=== PATIENT | male | born 1950 | race Caucasian/White ===

== ENCOUNTER 2016-04-26 17:50 | Inpatient (IN) | payer MEDICAID ==
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
[2016-04-26] MEDS ORDERED: HYDROmorphone 1 MG INJECTION IV ONE (18:32)
[2016-04-26 18:49] LABS: MPV 7.5 fL (7.4-10.4)
[2016-04-26 18:59] LABS: PARTIAL THROMB. TIME 27.3 SEC (22-35)
[2016-04-26 19:03] LABS: BLOOD UREA NITROGEN 11 MG/DL (9-20); CALC CORRECTED 8.5 MG/DL (8.4-10.2); CALCIUM 8.4 MG/DL (8.4-10.2); CALCULATED OSMOLALITY 264 MOs/Kg (270-290); CHLORIDE 101 mEq/L (98-107); CPK TOTAL WITH POSSIBLE MB 52 IU/L (55-170); GLUCOSE 118 MG/DL (70-99); SODIUM LEVEL 137 mEq/L (137-146); TOTAL PROTEIN 7.2 G/DL (6.3-8.2)
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
[2016-04-26 19:31] LABS: SEG NEUTROPHIL 28 % (45-76)
--- NOTE | 2016-04-26 19:49 | DIRPT ---
CLINICAL DATA: Fall over wheelchair today. Right hip injury. EXAM: CHEST 1 VIEW COMPARISON: None. FINDINGS: 1914 hours. The heart size and mediastinal contours are normal without evidence of mediastinal hematoma. There is mild aortic atherosclerosis. The lungs are hyperinflated with patchy airspace opacity in the right upper lobe. There is no pleural effusion or pneumothorax. No acute osseous findings. IMPRESSION: Ill-defined right upper lobe density could reflect an area of inflammation, scarring or pulmonary contusion. Followup PA and lateral chest X-ray is recommended in 3-4 weeks to ensure resolution and exclude underlying malignancy. Electronically Signed By: Deepak Delgado M.D. On: 04/26/2016 19:46
--- NOTE | 2016-04-26 19:52 | DIRPT ---
CLINICAL DATA: Pain following fall EXAM: BILATERAL HIP (WITH PELVIS) 3-4 VIEWS COMPARISON: None. FINDINGS: Frontal pelvis as well as frontal and lateral hips bilaterally-total five views- were obtained. There is a subcapital femoral neck fracture on the right with impaction at the fracture site. There is no other demonstrable acute fracture. No dislocation. There is evidence of old trauma in the midportion of each ischium. Joint spaces appear intact. No erosive change. IMPRESSION: Subcapital femoral neck fracture on the right with impaction at the fracture site. No dislocations. Evidence of prior fractures of each mid ischium, healed. Electronically Signed By: Deepak Valdez III, M.D. On: 04/26/2016 19:50
[2016-04-26 19:57] LABS: LEUKOCYTES/URINE NEG (NEGATIVE); NITRITE/URINE NEG (NEGATIVE); RBC/URINE TNTC (0-2); URINE OCCULT BLOOD 3+ (NEG/TRACE); WBC/URINE 0-2 (0-2)
[2016-04-26] MEDS ORDERED: DEXTROSE 25 GM/50 ML PFS IV PRN (20:18)
[2016-04-26] MEDS ORDERED: GLUCOSE (ORAL GEL) 15 GM TUBE PO PRN (20:18)
[2016-04-26] MEDS ORDERED: GLUCAGON 1 MG VIAL SQ PRN (20:18)
[2016-04-26] MEDS ORDERED: Albuterol/Ipratropium Neb 3 ML NEB NEB PRN (20:18)
[2016-04-26] MEDS ORDERED: ALPRAZOLAM 0.25 MG TAB PO PRN (20:25)
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
[2016-04-26] MEDS ORDERED: BISACODYL 5 MG TAB PO PRN (20:39)
[2016-04-26] MEDS ORDERED: SIMETHICONE 80 MG TAB PO PRN (20:39)
[2016-04-26] MEDS ORDERED: PROMETHAZINE 25 MG/ML VIAL IV PRN (20:39)
[2016-04-26] MEDS ORDERED: TEMAZEPAM 15 MG CAP PO PRN (20:39)
[2016-04-26] MEDS ORDERED: DOCUSATE-SENNA CONCENTRATE TAB PO PRN (20:39)
[2016-04-26] MEDS ORDERED: BISACODYL 10 MG SUPP PR PRN (20:39)
[2016-04-26] MEDS ORDERED: ONDANSETRON HCL 4 MG/2 ML VIAL IV PRN (20:39)
[2016-04-26] MEDS ORDERED: GUAIFENESIN 200 MG/10 ML UDC PO PRN (20:39)
[2016-04-26] MEDS ORDERED: IBUPROFEN 400 MG TAB PO PRN (20:39)
[2016-04-26] MEDS ORDERED: ENOXAPARIN 40 MG/0.4 ML PFS SQ SCH (21:00)
[2016-04-26] MEDS ORDERED: METHYLPREDNISOLONE 125 MG/2 ML VIAL IV ONE (21:00)
[2016-04-26] MEDS: NS 1,000 ML IV SCH (22:15)
[2016-04-26] MEDS: CEFTRIAXONE 1 GM in D5W 100 ML IV SCH (22:35)
[2016-04-26] MEDS: Levofloxacin 750 mg/150 ml D5W 750 MG/150 ML RTU IV SCH (22:35)
[2016-04-26] MEDS: NICOTINE 21 MG PATCH TOP SCH (22:39)
[2016-04-26] MEDS: DIVALPROEX SODIUM 125 MG CAP PO SCH (22:39)
[2016-04-26] MEDS: GUAIFENESIN 600 MG LA TAB PO SCH (22:39)
[2016-04-26] MEDS: PHENYTOIN SODIUM 100 MG CAP PO SCH (22:40)
[2016-04-26] MEDS: MORPHINE 2 MG/ML INJECTION IV PRN (23:02)
[2016-04-26] MEDS: ACETAMINOPHEN 325 MG/TAB TABLET PO SCH (23:03)
[2016-04-27 01:22] LABS: MPV 7.4 fL (7.4-10.4)
[2016-04-27 01:28] LABS: BLOOD UREA NITROGEN 10 MG/DL (9-20); CALCIUM 8.5 MG/DL (8.4-10.2); CALCULATED OSMOLALITY 264 MOs/Kg (270-290); CHLORIDE 98 mEq/L (98-107); GLUCOSE 155 MG/DL (70-99); SODIUM LEVEL 136 mEq/L (137-146)
[2016-04-27] MEDS: METHYLPREDNISOLONE 125 MG/2 ML VIAL IV SCH ×4 (01:45→20:42)
[2016-04-27] MEDS: OXYCODONE HCL 5 MG TABLET PO PRN ×2 (01:47→20:46)
[2016-04-27 01:57] LABS: SEG NEUTROPHIL 33 % (45-76)
[2016-04-27 01:59] LABS: TOTAL CELL COUNT 100
[2016-04-27] MEDS: REGULAR INSULIN 100 UNITS/ML - 3 ML VIAL SQ SCH ×4 (02:28→16:38)
[2016-04-27] MEDS: Albuterol/Ipratropium Neb 3 ML NEB NEB SCH ×4 (03:01→21:32)
[2016-04-27] MEDS ORDERED: CHLORHEXIDINE (HIBICLENS) 4 OZ BOTTLE TOP ONE (04:22)
[2016-04-27] MEDS: MORPHINE 2 MG/ML INJECTION IV PRN (04:36)
[2016-04-27] MEDS: ACETAMINOPHEN 325 MG/TAB TABLET PO SCH ×4 (04:38→20:46)
[2016-04-27] MEDS: DIVALPROEX SODIUM 125 MG CAP PO SCH ×3 (05:46→20:33)
[2016-04-27] MEDS: PANTOPRAZOLE 40 MG TAB PO SCH (05:47)
[2016-04-27 05:51] LABS: ABG Draw Site Right Radial; ALLEN'S TEST PASS; TCO2 27.9 MMOL/L (23-27)
[2016-04-27] MEDS ORDERED: CEFAZOLIN 1 GM VIAL IV ONE (07:00)
[2016-04-27] MEDS: PHENYTOIN SODIUM 100 MG CAP PO SCH ×2 (08:02→20:34)
[2016-04-27] MEDS: CYANOCOBALAMIN (Vitamin B-12) 500 MCG TABLET PO SCH (08:02)
[2016-04-27] MEDS: GUAIFENESIN 600 MG LA TAB PO SCH ×2 (08:02→20:34)
[2016-04-27] MEDS ORDERED: CYANOCOBALAMIN 250 MCG PO SCH (09:00)
[2016-04-27] MEDS ORDERED: GLYCOPYRROLATE 1 MG VIAL IM ONE (10:00)
[2016-04-27] MEDS ORDERED: DEXAMETHASONE 4 MG/ML VIAL IV ONE (10:00)
[2016-04-27] MEDS ORDERED: MIDAZOLAM 2 MG/2 ML VIAL IV ONE (10:00)
[2016-04-27] MEDS ORDERED: HYDROmorphone 2 MG/ML VIAL IM ONE (10:00)
[2016-04-27] MEDS ORDERED: ONDANSETRON HCL 4 MG/2 ML VIAL IV ONE (10:00)
[2016-04-27] MEDS ORDERED: PROPOFOL 200 MG/20 ML VIAL IV ONE (10:00)
[2016-04-27] MEDS: CALCIUM CARBONATE + VITAMIN D 500 MG TAB PO SCH ×2 (11:16→17:50)
[2016-04-27] MEDS: NS 1,000 ML IV SCH ×2 (11:18→21:38)
[2016-04-27] MEDS ORDERED: ONDANSETRON HCL 4 MG ODT TAB PO PRN (12:37)
[2016-04-27] MEDS ORDERED: LABETALOL 20 MG/4 ML SYRINGE IV PRN (12:37)
[2016-04-27] MEDS ORDERED: MEPERIDINE 25 MG/ML TUBEX IV PRN (12:37)
[2016-04-27] MEDS ORDERED: FENTANYL 100 MCG/2 ML VIAL IV PRN ×2 (12:37)
[2016-04-27] MEDS ORDERED: hydrALAZINE 20 MG/ML VIAL IV PRN (12:37)
[2016-04-27] MEDS ORDERED: PROMETHAZINE 25 MG/ML VIAL IV PRN ×2 (12:37)
[2016-04-27] MEDS ORDERED: ONDANSETRON HCL 4 MG/2 ML VIAL IV PRN (12:37)
[2016-04-27] MEDS ORDERED: HYDROmorphone 1 MG INJECTION IV PRN ×2 (12:37)
--- NOTE | 2016-04-27 12:38 | SC.ANESPOS ---
Post-Anesthesia Note LOC: [facility] Calling Post-Anesthesia Assessment: Awake, Returned to Baseline, Hemodynamically Stable , Pain Control Adequate Phase I & II Recovery Complete: Yes Apparent Anesthesia Complication: No : N - Vital Signs Blood Pressure: 146/79 Pulse: 80 Resp Rate: 20 O2 Sat: 96 Temp: 99 F
--- NOTE | 2016-04-27 12:44 | HIM.ANES ---
Anesthesia Evaluation & Plan - Focused Review of Systems Cardiac History: Yes: Hx Hypertension Respiratory: Yes: Hx Emphysema, Hx Chronic Obstructive Pulmonary Disease (COPD) , Hx Pneumonia Neurological/Musculoskeletal: Yes: HX Cerebrovascular Accident, Hx Seizures ( Last yesterday) Psychological: Yes Hx Anxiety, Yes Hx Depression Blood/Autoimmune: No: Hx AIDS, Hx Hepatitis (type) Smoking Status: Heavy tobacco smoker (5 or more cigarettes/day or daily pipe/ cigar) - Focused Physical Exam NPO since: midnight Mallampati: Class II Thyromental Distance: Greater than 3 Neck: Full Range of Motion Dental: Removable Dental Work Cardiovascular/Chest: Normal Respiratory: Decreased breath sounds, Crackles Any problems with anesthesia, including nausea and vomiting?: No Any relatives with a history of Malignant Hyperthermia?: No Does patient have a history of Malignant Hyperthermia?: No Beta Juan M given (if appropriate): N/A Other: Problem List Problem Status Onset Acute and chronic respiratory failure with hypoxia Acute Closed right hip fracture Acute Closed right hip fracture Acute Epilepsy Acute Pneumonia Acute Right hip pain Acute GERD (gastroesophageal reflux disease) Chronic Rheumatoid arthritis Chronic PT/PTT/INR/ PT 10.7 SEC (9.2-11.2) 04/26/16 18:30 INR 1.0 04/26/16 18:30 APTT 27.3 SEC (22-35) 04/26/16 18:30 CBC/BMP/Other 04/27/16 01:10 04/27/16 01:10 Allergies Allergy/AdvReac Type Severity Reaction Status Date / Time No Known Allergies Allergy Unverified 04/26/16 18:30 Home Medications Medication Instructions Recorded Last Taken Type Alprazolam [Xanax] 0.25 mg PO QHS PRN 04/26/16 04/25/16 History Cyanocobalamin (Vitamin B-12) 250 mcg PO DAILY 04/26/16 04/26/16 History [Vitamin B-12] Divalproex Sodium [Depakote 125 mg PO TID 04/26/16 04/26/16 History Sprinkle] Phenytoin Sodium Extended 200 mg PO BID 04/26/16 04/26/16 History [Dilantin] Height and Weight Patient's weight 133 lb 8 oz Weight (Calculated Kilograms) 60.555 Vital Signs Temperature 99 F 04/27/16 12:38 Pulse Rate 80 04/27/16 12:38 Respiratory Rate 20 04/27/16 12:38 Blood Pressure 146/79 04/27/16 12:38 Pulse Oxygen Saturation 96 04/27/16 12:38 - Anesthetic Plan Anesthesia Type: General ASA Class: 3 -: I have examined this patient and reviewed the medical record. The patient has been assessed prior to anesthesia. Risks and benefits of anesthesia and anesthetic technique options have been discussed and all questions answered. The patient accepts the risk and desires me to proceed with the planned anesthetic.
[2016-04-27] MEDS ORDERED: LIDOCAINE 1% 30 ML VIAL (PRESERVATIVE FREE) ONE (13:20)
[2016-04-27] MEDS ORDERED: BUPIVACAINE 0.5% 30 ML VIAL ONE (13:20)
[2016-04-27] MEDS: VANCOMYCIN 1,000 MG VIAL INSTILL ONE ×2 (14:30→16:37)
--- NOTE | 2016-04-27 14:45 | HIMOPRPT ---
DATE OF PROCEDURE: 04/27/16 PREOPERATIVE DIAGNOSIS: Displaced femoral neck fracture of right hip. POSTOPERATIVE DIAGNOSIS: Displaced femoral neck right hip. OPERATION: Right hip hemiarthroplasty. SURGEON: Shabbir Romeo MD FIRST ASSISTANT MANAGER: URSZULA Lima ANESTHESIA: General endotracheal anesthesia DRAINS: None. COMPLICATIONS: None. IMPLANTS: Synthetic Substitute Metal Oleg - Titanium Stem non-cemented size 8 - Head Stainless Steel bipolar 52 mm,-5 mm diameter DISPOSITION: Stable to recovery. ESTIMATED BLOOD LOSS: 100 mL. BRIEF HISTORY: The patient is a 65 years old M with a history of fall. Patient sustained a displaced right femoral neck fracture. Right hip hemiarthroplasty was recommended. Patient understood that the risks involved in surgery include but are not limited to infection, damage to the nerve, blood vessel, recurrent dislocation, need for further surgery, continued pain, implant failure, DVT, pulmonary embolism, stroke and even . Patient was also explained the requirement of adherence to postoperative protocol. BIJAL EVANS showed understanding and willingness to proceed. Patient volunteered an informed consent. PROCEDURE IN DETAIL: BIJAL EVANS was identified in the preop area. The surgical side was confirmed with the patient and marked on the skin. Patient was then returned back into the operating room. Patient was placed supine on the operating table. Spinal anesthesia was administered. Proper timeout was performed confirming the identity of the patient as well as the site of the surgery. 2 g of IV Ancef were given preoperatively within 30 min. of the surgical incision. All the bony prominences were adequately padded. The surgical area was sealed off with plastic drapes. The surgical area was scrubbed with alcohol and Betadine and finally prepped with ChloraPrep. [place] full body gowns were used. Direct anterior approach was used. This surgical incision lateral and distal to the anterior superior iliac spine was made extending distally 4 inches.Skin and the fascia was incised. Bovie was used for deeper dissection. Tensor fascia ross was identified . The fascia of the tensor fascia ross was incised. The muscle belly of TFL was retracted laterally. The fascia between the sartorius and TFL was incised. Branches of the circumflex femoral vessels were cauterized. Curved Cobra retractors were placed superior and inferior to the neck. An interval was then created between the anterior hip capsule and hip flexors. An anterior cobra retractor was placed above the pelvic brim. A Tshaped capsular incision was made in the anterior capsule with the base of the T laterally along the intertrochanteric line. Anterior capsulectomy was performed. The cyst. An inferior retractors were repositioned inside the capsule. A napkin ringed osteotomy was made in the femoral neck. The femoral head was retrieved and measured 52 mm . We then proceeded with the preparation of the proximal femur for the implantation of the femoral stem. Posterior superior capsules was resected for release of proximal femur. The operated leg was abducted assisted with the break in the table. External rotation of the extremity was utilized. Proximal femur was delivered laterally and proximally. Progressive reaming of the femoral canal was performed up to size 8 . We then trialed with a different size neck options. The hip was carried through full flexion, adduction and internal rotation without any dislocation. Bilateral lower extremity lengths as palpated from anterior superior iliac spine to the medial malleolus were comparable bilaterally. We found adequate stability with standard size neck, 52 mm bipolar head. The trial components were removed. The wound was copiously irrigated with normal saline. We implanted a size 8 noncemented stem, with 52,-5 mm bipolar head. Hip was again carried through range of motion and stability was satisfactory in flexion, adduction and internal and external rotation. The hip joint was irrigated with copious amount of sterile saline solution. Also prior to closure of the capsule was injected with Exparel, which was also injected into the surrounding soft tissues. The fascia of the tensor fascia ross was closed with 2-0 Vicryl. The subcutaneous tissue was reapproximated with Vicryl and skin was closed with laith. The patient was extubated and taken to the recovery room in stable condition. BIJAL tolerated the procedure well without immediate complications. DISPOSITION: Patient would be admitted to the orthopedic service. Patient will be weightbearing as tolerated on bilateral lower extremities. Patient will be started on aspirin 325 mg twice daily for DVT prophylaxis. Patient will have mechanical prophylaxis with intermittent compression devices while in bed.
--- NOTE | 2016-04-27 15:52 | GENMEDPROG ---
Chief Complaint: Complains of moderate pain. Minimal shortness of breath. Some cough and congestion. Notes Reviewed: Yes Events from last night noted and discussed with Clinical Staff Current Medication List: Reviewed Currently: Reports: Cough, SOB. Denies: Wheezing, TRIANA, Nausea and Vomiting, Abdominal Pain, Chest Pain DVT Prophylaxis: Yes - Physical Examination Vital Signs and I&O: Last Vital Signs Temp 99.5 F 04/27/16 15:05 Pulse 84 04/27/16 15:05 Resp 14 04/27/16 15:05 BP 129/78 04/27/16 15:05 Pulse Ox 97 04/27/16 15:05 Oxygen Pulse Oxygen Saturation 97 O2 Device Simple Mask Oxygen Flow Rate 8 Fraction of Inspired Oxygen ( FIO2) Intake & Output 04/24/16 04/25/16 04/26/16 04/27/16 23:59 23:59 23:59 23:59 Intake Total 0 507 Output Total 225 1000 Balance -225 -493 Patient's weight 60.81 kg 60.555 kg General: Alert, Oriented x3, Cooperative. negative: Well appearing ( Chronically ill-appearing) HEENT: Normal, PERRLA, EOMI, Anicteric Sclera Neck: Non-tender, Full range of motion, Normal Trachea alignment, Normal inspection. negative: JVD Lymphatics: Normal. negative: Adenopathy Respiratory: Diminished, Rhonchi Cardiovascular: Regular rate and rhythm, No Gallops,Rubs/Murmurs GI: Normal bowel sounds, Soft, Non tender, No hepatospenomegaly Extremities/Musculoskeletal: Normal pulses. negative: Tenderness, Swelling, Edema Skin: Warm,Dry and Intact, No rashes, No breakdown, No significant lesion Neurological: Strength at 5/5 X4 ext, Normal tone, Cranial nerves 3-12 NL Psych/Mental Status: Appropriate, Normal Affect, Cooperative Lab/DI/Studies Reviewed: Laboratory Results - last 24 hr 04/26/16 04/26/16 04/26/16 18:30 18:30 18:30 WBC 1.8 L RBC 4.76 Hgb 13.5 L Hct 40.1 L MCV 84 MCH 28.3 MCHC 33.5 RDW 14.0 Plt Count 152 MPV 7.5 Neut % (Auto) Cancelled Lymph % (Auto) Cancelled [place] % (Auto) Cancelled Eos % (Auto) Cancelled Baso % (Auto) Cancelled Absolute Neuts (auto) Cancelled Absolute Lymphs (auto) Cancelled Seg Neuts % (Manual) 28 L Band Neutrophils % 0 Lymphocytes % (Manual) 54 H Monocytes % (Manual) 18 H Absolute Neutrophils 0.50 L Absolute Lymphocytes 0.97 Platelet Estimate Norm RBC Morphology Norm PT INR APTT Puncture Site pH pCO2 pO2 HCO3 Total CO2 Base Excess FiO2 % Specimen Drawn By Sodium 137 Potassium 4.0 Chloride 101 Carbon Dioxide 26 Anion Gap 14 BUN 11 Creatinine 0.50 L Estimated GFR (MDRD) > 60 Glucose 118 H POC Capillary Glucose Hemoglobin A1c Calculated Osmolality 264 L Calcium 8.4 Corrected Calcium 8.5 Total Bilirubin 0.7 AST 22 ALT 27 Alkaline Phosphatase 111 Creatine Kinase 52 L Troponin I < 0.01 Total Protein 7.2 Albumin 3.9 TSH Urine Color Urine Clarity Urine pH Ur Specific [place] Urine Protein Urine Glucose (UA) Urine Ketones Urine Occult Blood Urine Nitrite Urine Bilirubin Urine Urobilinogen Ur Leukocyte Esterase Urine RBC Urine WBC Ur Epithelial Cells Urine Mucus Blood Type O POSITIVE Antibody Screen Negative 04/26/16 04/26/16 04/26/16 18:30 19:38 21:10 WBC RBC Hgb Hct MCV MCH MCHC RDW Plt Count MPV Neut % (Auto) Lymph % (Auto) [place] % (Auto) Eos % (Auto) Baso % (Auto) Absolute Neuts (auto) Absolute Lymphs (auto) Seg Neuts % (Manual) Band Neutrophils % Lymphocytes % (Manual) Monocytes % (Manual) Absolute Neutrophils Absolute Lymphocytes Platelet Estimate RBC Morphology PT 10.7 INR 1.0 APTT 27.3 Puncture Site pH pCO2 pO2 HCO3 Total CO2 Base Excess FiO2 % Specimen Drawn By Sodium Potassium Chloride Carbon Dioxide Anion Gap BUN Creatinine Estimated GFR (MDRD) Glucose POC Capillary Glucose Hemoglobin A1c Calculated Osmolality Calcium Corrected Calcium Total Bilirubin AST ALT Alkaline Phosphatase Creatine Kinase Troponin I < 0.01 Total Protein Albumin TSH Urine Color Yellow Urine Clarity Clear Urine pH 6.0 Ur Specific [place] 1.015 Urine Protein Neg Urine Glucose (UA) Neg Urine Ketones 1+ H Urine Occult Blood 3+ H Urine Nitrite Neg Urine Bilirubin Neg Urine Urobilinogen <2.0 Ur Leukocyte Esterase Neg Urine RBC Tntc H Urine WBC 0-2 Ur Epithelial Cells 1+ Urine Mucus Occ Blood Type Antibody Screen 04/26/16 04/26/16 04/27/16 21:35 21:35 01:10 WBC RBC Hgb Hct MCV MCH MCHC RDW Plt Count MPV Neut % (Auto) Lymph % (Auto) [place] % (Auto) Eos % (Auto) Baso % (Auto) Absolute Neuts (auto) Absolute Lymphs (auto) Seg Neuts % (Manual) Band Neutrophils % Lymphocytes % (Manual) Monocytes % (Manual) Absolute Neutrophils Absolute Lymphocytes Platelet Estimate RBC Morphology PT INR APTT Puncture Site pH pCO2 pO2 HCO3 Total CO2 Base Excess FiO2 % Specimen Drawn By Sodium Potassium Chloride Carbon Dioxide Anion Gap BUN Creatinine Estimated GFR (MDRD) Glucose POC Capillary Glucose Hemoglobin A1c 5.4 Calculated Osmolality Calcium Corrected Calcium Total Bilirubin AST ALT Alkaline Phosphatase Creatine Kinase Troponin I < 0.01 Total Protein Albumin TSH 3.07 Urine Color Urine Clarity Urine pH Ur Specific [place] Urine Protein Urine Glucose (UA) Urine Ketones Urine Occult Blood Urine Nitrite Urine Bilirubin Urine Urobilinogen Ur Leukocyte Esterase Urine RBC Urine WBC Ur Epithelial Cells Urine Mucus Blood Type Antibody Screen 04/27/16 04/27/16 04/27/16 01:10 01:10 02:09 WBC 1.8 L RBC 4.92 Hgb 14.1 Hct 41.4 L MCV 84 MCH 28.6 MCHC 34.0 RDW 13.9 Plt Count 145 MPV 7.4 Neut % (Auto) Cancelled Lymph % (Auto) Cancelled [place] % (Auto) Cancelled Eos % (Auto) Cancelled Baso % (Auto) Cancelled Absolute Neuts (auto) Cancelled Absolute Lymphs (auto) Cancelled Seg Neuts % (Manual) 33 L Band Neutrophils % 3 Lymphocytes % (Manual) 46 H Monocytes % (Manual) 18 H Absolute Neutrophils 0.65 L Absolute Lymphocytes 0.83 Platelet Estimate Plt clumps present RBC Morphology Norm PT INR APTT Puncture Site pH pCO2 pO2 HCO3 Total CO2 Base Excess FiO2 % Specimen Drawn By Sodium 136 L Potassium 4.3 Chloride 98 Carbon Dioxide 28 Anion Gap 14 BUN 10 Creatinine 0.60 L Estimated GFR (MDRD) > 60 Glucose 155 H POC Capillary Glucose 135 H Hemoglobin A1c Calculated Osmolality 264 L Calcium 8.5 Corrected Calcium Total Bilirubin AST ALT Alkaline Phosphatase Creatine Kinase Troponin I Total Protein Albumin TSH Urine Color Urine Clarity Urine pH Ur Specific [place] Urine Protein Urine Glucose (UA) Urine Ketones Urine Occult Blood Urine Nitrite Urine Bilirubin Urine Urobilinogen Ur Leukocyte Esterase Urine RBC Urine WBC Ur Epithelial Cells Urine Mucus Blood Type Antibody Screen 04/27/16 04/27/16 04/27/16 05:05 05:36 10:37 WBC RBC Hgb Hct MCV MCH MCHC RDW Plt Count MPV Neut % (Auto) Lymph % (Auto) [place] % (Auto) Eos % (Auto) Baso % (Auto) Absolute Neuts (auto) Absolute Lymphs (auto) Seg Neuts % (Manual) Band Neutrophils % Lymphocytes % (Manual) Monocytes % (Manual) Absolute Neutrophils Absolute Lymphocytes Platelet Estimate RBC Morphology PT INR APTT Puncture Site Right radial pH 7.340 L pCO2 49.0 H pO2 59.0 L HCO3 26.4 H Total CO2 27.9 H Base Excess 0.0 FiO2 % 2l nc Specimen Drawn By Whitr Sodium Potassium Chloride Carbon Dioxide Anion Gap BUN Creatinine Estimated GFR (MDRD) Glucose POC Capillary Glucose 130 H 117 H Hemoglobin A1c Calculated Osmolality Calcium Corrected Calcium Total Bilirubin AST ALT Alkaline Phosphatase Creatine Kinase Troponin I Total Protein Albumin TSH Urine Color Urine Clarity Urine pH Ur Specific [place] Urine Protein Urine Glucose (UA) Urine Ketones Urine Occult Blood Urine Nitrite Urine Bilirubin Urine Urobilinogen Ur Leukocyte Esterase Urine RBC Urine WBC Ur Epithelial Cells Urine Mucus Blood Type Antibody Screen - Assessment (1) Acute and chronic respiratory failure with hypoxia Acute J96.21 - ACUTE AND CHRONIC RESPIRATORY FAILURE WITH HYPOXIA Comment/ Plan: Continue oxygen support. Encourage incentive spirometry. Continue IV antibiotics (2) Closed right hip fracture Acute S72.001A - FRACTURE OF UNSP PART OF NECK OF RIGHT FEMUR, INIT Qualifiers: Encounter type: initial encounter Qualified Code(s): S72.001A - Fracture of unspecified part of neck of right femur, initial encounter for closed fracture Comment/Plan: Status post right total hip replacement. Per Orthopedics. (3) Pneumonia Acute J18.9 - PNEUMONIA, UNSPECIFIED ORGANISM Qualifiers: Pneumonia type: due to unspecified organism Laterality: right Lung location: upper lobe of lung Qualified Code(s): J18.1 - Lobar pneumonia, unspecified organism Comment/Plan: Patient will receive antibiotics in the form of Rocephin and Levaquin. (4) Epilepsy Acute G40.909 - EPILEPSY, UNSP, NOT INTRACTABLE, WITHOUT STATUS EPILEPTICUS Qualifiers: Epilepsy type: unspecified Intractability: not intractable Status epilepticus: without status epilepticus Qualified Code(s): G40.909 - Epilepsy , unspecified, not intractable, without status epilepticus Comment/Plan: Stable on home meds.. (5) Right hip pain Acute M25.551 - PAIN IN RIGHT HIP Comment/Plan: Adjust meds to keep pain under control. (6) GERD (gastroesophageal reflux disease) Chronic K21.9 - GASTRO-ESOPHAGEAL REFLUX DISEASE WITHOUT ESOPHAGITIS Qualifiers: Esophagitis presence: without esophagitis Qualified Code(s): K21.9 - Gastro -esophageal reflux disease without esophagitis Comment/Plan: Continue PPI (7) Rheumatoid arthritis Chronic M06.9 - RHEUMATOID ARTHRITIS, UNSPECIFIED Qualifiers: Rheumatoid arthritis location: multiple sites Rheumatoid factor presence: unspecified presence Qualified Code(s): M06.9 - Rheumatoid arthritis, unspecified Comment/Plan: Continue narcotic analgesics and IV steroids. Case Care Discussed with: Patient, Nursing Staff, Physical Therapy, Resource Management, Respiratory Therapy
--- NOTE | 2016-04-27 15:54 | DIRPT ---
CLINICAL DATA: ORIF of right subcapital hip fracture. EXAM: RIGHT HIP (WITH PELVIS) 1 VIEW PORTABLE COMPARISON: None. FINDINGS: Frontal projection shows normal alignment of a bipolar hemiarthroplasty. No fracture or abnormal lucency identified. IMPRESSION: Normal alignment status post right hip arthroplasty. Electronically Signed By: Sloan Wilson M.D. On: 04/27/2016 15:51
[2016-04-27 15:58] VITALS: BMI 18.1
[2016-04-27] MEDS: Cefazolin 1gm/50 ml D5W 1 GM/50 ML RTU IV SCH (18:01)
[2016-04-27] MEDS: CEFTRIAXONE 1 GM in D5W 100 ML IV SCH (20:35)
[2016-04-27] MEDS: NICOTINE 21 MG PATCH TOP SCH (20:35)
[2016-04-27] MEDS: Levofloxacin 750 mg/150 ml D5W 750 MG/150 ML RTU IV SCH (21:42)
[2016-04-28] MEDS: REGULAR INSULIN 100 UNITS/ML - 3 ML VIAL SQ SCH ×4 (00:28→16:52)
[2016-04-28] MEDS: Albuterol/Ipratropium Neb 3 ML NEB NEB SCH ×4 (00:54→19:23)
[2016-04-28] MEDS: NS 1,000 ML IV SCH ×4 (01:52→21:02)
[2016-04-28] MEDS: Cefazolin 1gm/50 ml D5W 1 GM/50 ML RTU IV SCH ×2 (01:55→10:11)
[2016-04-28] MEDS: METHYLPREDNISOLONE 125 MG/2 ML VIAL IV SCH ×4 (03:28→21:02)
[2016-04-28] MEDS: ACETAMINOPHEN 325 MG/TAB TABLET PO SCH ×4 (03:29→21:07)
[2016-04-28] MEDS: ENOXAPARIN 40 MG/0.4 ML PFS SQ SCH ×2 (03:29→17:13)
[2016-04-28] MEDS: DIVALPROEX SODIUM 125 MG CAP PO SCH ×3 (05:15→20:59)
[2016-04-28] MEDS: PANTOPRAZOLE 40 MG TAB PO SCH (05:16)
--- NOTE | 2016-04-28 06:59 | PCM.ORTHBL ---
- Subjective Post Op Day: 1 Daily Assessment - Patient: Reports: No new complaints, Feels better, Pain is less, Tolerating Regular Diet, Afebrile, Other (Denies chest pain). Denies: Ambulating with Physical Therapist (to begin today), Difficulty Swallowing, Shortness of breath, Nausea, Vomiting - Objective / Physical Exam Vital Signs: Temperature: 99 F (04/28/16 03:37) HR: 80 (04/28/16 03:37)RR: 20 (04/28/16 03:37 ) BP: 146/79 (04/28/16 03:37)Pulse Ox: 96 (04/28/16 03:37) General: Alert, Cooperative, No acute distress, Well appearing, Other (Patient mildly confused this morning) Musculoskeletal / Extremities: 2 plus Dorsalis Pedis Pulse, Dressing Clean/Dry/ Intact. negative: Tenderness (no calf tenderness) Neurological: Positive Sensation First Dorsal Web Space, Sensation to light touch intact, Extensor Hallicus Longus Intact, Flexor Hallicus Longus Intact, Dorsiflexion Intact, Plantarflexion Intact - Assessment and Plan (1) Closed right hip fracture Acute S72.001A - FRACTURE OF UNSP PART OF NECK OF RIGHT FEMUR, INIT Present on Admission: Yes initial encounter S72.001A - Fracture of unspecified part of neck of right femur, initial encounter for closed fracture Plan: POD#1 s/p right hip hemiarthroplasty PT/OT/WBAT TEDS/SCDS/Lovenox SQ QD for 14 days post-op for DVT prophylaxis continue pain management D/c planning
[2016-04-28 07:45] LABS: MPV 7.4 fL (7.4-10.4)
--- NOTE | 2016-04-28 08:11 | DIRPT ---
CLINICAL DATA: Follow-up of suspected pneumonia EXAM: PORTABLE CHEST 1 VIEW COMPARISON: Portable chest x-ray of April 26, 2016 FINDINGS: The lungs remain mildly hyperinflated. Hazy increased density in the right mid lung is present but stable. There is no pneumothorax or pleural effusion. The heart and pulmonary vascularity are normal. IMPRESSION: Hazy increased density persists in the right mid lung. If the patient can undergo the procedure, a PA and lateral chest x-ray would be useful. Alternatively, given the lack of any studies earlier than April 26, 2016, chest CT scanning may be the most useful next imaging step to exclude lung parenchymal abnormalities. Electronically Signed By: Remy Sandoval M.D. On: 04/28/2016 08:09
[2016-04-28 08:25] LABS: BLOOD UREA NITROGEN 13 MG/DL (9-20); CALCIUM 7.7 MG/DL (8.4-10.2); CALCULATED OSMOLALITY 256 MOs/Kg (270-290); CHLORIDE 99 mEq/L (98-107); GLUCOSE 119 MG/DL (70-99); SODIUM LEVEL 132 mEq/L (137-146)
[2016-04-28] MEDS: PHENYTOIN SODIUM 100 MG CAP PO SCH ×2 (08:41→21:00)
[2016-04-28] MEDS: GUAIFENESIN 600 MG LA TAB PO SCH ×2 (08:41→21:00)
[2016-04-28 08:48] LABS: SEG NEUTROPHIL 38 % (45-76)
[2016-04-28] MEDS: CYANOCOBALAMIN (Vitamin B-12) 500 MCG TABLET PO SCH (08:53)
[2016-04-28] MEDS: CALCIUM CARBONATE + VITAMIN D 500 MG TAB PO SCH ×2 (11:20→17:12)
--- NOTE | 2016-04-28 15:05 | GENMEDPROG ---
Chief Complaint: Sitting up in chair doing well. No complaints. Denies chest pain. Does have moderate hip pain Notes Reviewed: Yes Events from last night noted and discussed with Clinical Staff Current Medication List: Reviewed Currently: Reports: Cough, SOB. Denies: Wheezing, TRIANA, Nausea and Vomiting, Abdominal Pain, Chest Pain DVT Prophylaxis: Yes - Physical Examination Vital Signs and I&O: Last Vital Signs Temp 98.4 F 04/28/16 14:00 Pulse 94 04/28/16 14:00 Resp 20 04/28/16 14:00 BP 123/68 04/28/16 14:00 Pulse Ox 93 04/28/16 14:00 Oxygen Pulse Oxygen Saturation [ 88 Seated] Pulse Oxygen Saturation 93 O2 Device Nasal Cannula Oxygen Flow Rate 2 Fraction of Inspired Oxygen ( FIO2) Intake & Output 04/25/16 04/26/16 04/27/16 04/28/16 23:59 23:59 23:59 23:59 Intake Total 0 1434 2177 Output Total 225 1500 850 Balance -225 -66 1327 Patient's weight 60.81 kg 60.555 kg 62.171 kg General: Alert, Cooperative, No acute distress, Well appearing, Other (Patient mildly confused this morning) HEENT: Normal, PERRLA, EOMI, Anicteric Sclera Neck: Non-tender, Full range of motion, Normal Trachea alignment, Normal inspection. negative: JVD Lymphatics: Normal. negative: Adenopathy Respiratory: Normal - CTA Cardiovascular: Regular rate and rhythm, No Gallops,Rubs/Murmurs GI: Normal bowel sounds, Soft, Non tender, No hepatospenomegaly Extremities/Musculoskeletal: Normal pulses. negative: Tenderness, Swelling, Edema Skin: No rashes, No breakdown, No significant lesion Neurological: Normal speech, Strength at 5/5 X4 ext, Normal tone Psych/Mental Status: Appropriate, Normal Affect, Cooperative Lab/DI/Studies Reviewed: Laboratory Results - last 24 hr 04/26/16 04/27/16 04/28/16 18:30 16:32 00:14 WBC RBC Hgb Hct MCV MCH MCHC RDW Plt Count MPV Neut % (Auto) Lymph % (Auto) [place] % (Auto) Eos % (Auto) Baso % (Auto) Absolute Neuts (auto) Absolute Lymphs (auto) Seg Neuts % (Manual) Band Neutrophils % Lymphocytes % (Manual) Monocytes % (Manual) Absolute Neutrophils Absolute Lymphocytes Toxic Granulation Platelet Estimate RBC Morphology Sodium Potassium Chloride Carbon Dioxide Anion Gap BUN Creatinine Estimated GFR (MDRD) Glucose POC Capillary Glucose 127 H 178 H Calculated Osmolality Calcium Vitamin D 25-Hydroxy 45.8 04/28/16 04/28/16 04/28/16 05:06 07:11 07:11 WBC 2.0 L RBC 3.76 L Hgb 10.9 L D Hct 31.2 L MCV 83 MCH 29.0 MCHC 34.9 RDW 13.6 Plt Count 116 L MPV 7.4 Neut % (Auto) Cancelled Lymph % (Auto) Cancelled [place] % (Auto) Cancelled Eos % (Auto) Cancelled Baso % (Auto) Cancelled Absolute Neuts (auto) Cancelled Absolute Lymphs (auto) Cancelled Seg Neuts % (Manual) 38 L Band Neutrophils % 17 H Lymphocytes % (Manual) 33 Monocytes % (Manual) 12 H Absolute Neutrophils 1.10 L Absolute Lymphocytes 0.66 Toxic Granulation 1+ Platelet Estimate Dec RBC Morphology Reviewed this admiss Sodium 132 L Potassium 3.9 Chloride 99 Carbon Dioxide 26 Anion Gap 11 BUN 13 Creatinine 0.60 L Estimated GFR (MDRD) > 60 Glucose 119 H POC Capillary Glucose 100 H Calculated Osmolality 256 L Calcium 7.7 L Vitamin D 25-Hydroxy 04/28/16 11:16 WBC RBC Hgb Hct MCV MCH MCHC RDW Plt Count MPV Neut % (Auto) Lymph % (Auto) [place] % (Auto) Eos % (Auto) Baso % (Auto) Absolute Neuts (auto) Absolute Lymphs (auto) Seg Neuts % (Manual) Band Neutrophils % Lymphocytes % (Manual) Monocytes % (Manual) Absolute Neutrophils Absolute Lymphocytes Toxic Granulation Platelet Estimate RBC Morphology Sodium Potassium Chloride Carbon Dioxide Anion Gap BUN Creatinine Estimated GFR (MDRD) Glucose POC Capillary Glucose 177 H Calculated Osmolality Calcium Vitamin D 25-Hydroxy - Assessment (1) Acute and chronic respiratory failure with hypoxia Acute J96.21 - ACUTE AND CHRONIC RESPIRATORY FAILURE WITH HYPOXIA Comment/ Plan: Doing well. Denies significant respiratory difficulty at this time. Wean oxygen and increase activity. Continue current care (2) Closed right hip fracture Acute S72.001A - FRACTURE OF UNSP PART OF NECK OF RIGHT FEMUR, INIT Qualifiers: Encounter type: initial encounter Qualified Code(s): S72.001A - Fracture of unspecified part of neck of right femur, initial encounter for closed fracture Comment/Plan: Status post right total hip replacement. Per Orthopedics. (3) Pneumonia Acute J18.9 - PNEUMONIA, UNSPECIFIED ORGANISM Qualifiers: Pneumonia type: due to unspecified organism Laterality: right Lung location: upper lobe of lung Qualified Code(s): J18.1 - Lobar pneumonia, unspecified organism Comment/Plan: Right midlung. Continue antibiotics pulmonary toilet. Likely needs follow-up chest x-ray in a couple of days. (4) Epilepsy Acute G40.909 - EPILEPSY, UNSP, NOT INTRACTABLE, WITHOUT STATUS EPILEPTICUS Qualifiers: Epilepsy type: unspecified Intractability: not intractable Status epilepticus: without status epilepticus Qualified Code(s): G40.909 - Epilepsy , unspecified, not intractable, without status epilepticus Comment/Plan: Stable on home meds.. (5) Right hip pain Acute M25.551 - PAIN IN RIGHT HIP Comment/Plan: Adjust meds to keep pain under control. (6) GERD (gastroesophageal reflux disease) Chronic K21.9 - GASTRO-ESOPHAGEAL REFLUX DISEASE WITHOUT ESOPHAGITIS Qualifiers: Esophagitis presence: without esophagitis Qualified Code(s): K21.9 - Gastro -esophageal reflux disease without esophagitis Comment/Plan: Continue PPI (7) Rheumatoid arthritis Chronic M06.9 - RHEUMATOID ARTHRITIS, UNSPECIFIED Qualifiers: Rheumatoid arthritis location: multiple sites Rheumatoid factor presence: unspecified presence Qualified Code(s): M06.9 - Rheumatoid arthritis, unspecified Comment/Plan: Continue narcotic analgesics and IV steroids. Case Care Discussed with: Patient, Nursing Staff, Physical Therapy, Resource Management, Respiratory Therapy, Hemodialysis Charge Nurse
[2016-04-28] MEDS: NICOTINE 21 MG PATCH TOP SCH (21:01)
[2016-04-28] MEDS: CEFTRIAXONE 1 GM in D5W 100 ML IV SCH (21:07)
[2016-04-28] MEDS: Levofloxacin 750 mg/150 ml D5W 750 MG/150 ML RTU IV SCH (22:00)
[2016-04-29] MEDS: REGULAR INSULIN 100 UNITS/ML - 3 ML VIAL SQ SCH ×4 (00:36→16:57)
[2016-04-29] MEDS: Albuterol/Ipratropium Neb 3 ML NEB NEB SCH ×3 (01:20→14:15)
[2016-04-29] MEDS: ACETAMINOPHEN 325 MG/TAB TABLET PO SCH ×3 (02:35→14:51)
[2016-04-29] MEDS: METHYLPREDNISOLONE 125 MG/2 ML VIAL IV SCH ×3 (02:36→14:50)
[2016-04-29] MEDS: NS 1,000 ML IV SCH ×2 (02:37→11:03)
[2016-04-29] MEDS: DIVALPROEX SODIUM 125 MG CAP PO SCH ×2 (05:23→12:28)
[2016-04-29] MEDS: PANTOPRAZOLE 40 MG TAB PO SCH (05:24)
[2016-04-29 05:52] LABS: AUTOMATED BASOPHIL 0.1 % (0-2); AUTOMATED EOSINOPHIL 0.1 % (0-5); AUTOMATED LYMPH 18.9 % (17-44); AUTOMATED MONOCYTE 16.7 % (3-10); AUTOMATED NEUTROPHIL 64.2 % (45-76); MPV 7.9 fL (7.4-10.4)
[2016-04-29 06:19] LABS: BLOOD UREA NITROGEN 12 MG/DL (9-20); CALCIUM 8.4 MG/DL (8.4-10.2); CALCULATED OSMOLALITY 256 MOs/Kg (270-290); CHLORIDE 99 mEq/L (98-107); GLUCOSE 121 MG/DL (70-99); SODIUM LEVEL 132 mEq/L (137-146)
--- NOTE | 2016-04-29 06:54 | PCM.ORTHBL ---
- Subjective Post Op Day: 2 Daily Assessment - Patient: Reports: No new complaints, Awake Alert Oriented x4 , Pain is less, Tolerating Regular Diet, Afebrile, Ambulating with Physical Therapist, Other (Denies chest pain). Denies: Shortness of breath, Nausea, Vomiting - Objective / Physical Exam Vital Signs: Temperature: 98.2 F (04/29/16 05:43) HR: 97 (04/29/16 05:43)RR: 20 (04/29/16 05: 43) BP: 134/72 (04/29/16 05:43)Pulse Ox: 93 (04/29/16 05:43) General: Alert (confusion from yesterday improved), Oriented x3, Cooperative, No acute distress, Well appearing Musculoskeletal / Extremities: 2 plus Dorsalis Pedis Pulse, Dressing Clean/Dry/ Intact. negative: Tenderness (no calf tenderness) Neurological: Positive Sensation First Dorsal Web Space, Sensation to light touch intact, Extensor Hallicus Longus Intact, Flexor Hallicus Longus Intact, Dorsiflexion Intact, Plantarflexion Intact Laboratory/Diagnostics Reviewed: 04/29/16 05:10 04/29/16 05:10 - Assessment and Plan (1) Closed right hip fracture Acute S72.001A - FRACTURE OF UNSP PART OF NECK OF RIGHT FEMUR, INIT Present on Admission: Yes initial encounter S72.001A - Fracture of unspecified part of neck of right femur, initial encounter for closed fracture Plan: s/p right hip hemiarthroplasty PT/OT/WBAT TEDS/SCDS/Lovenox SQ QD for 14 days post-op Continue pain management D/c planning, plan to return to SNF
--- NOTE | 2016-04-29 07:12 | PCM.DCS92 ---
- Final/Secondary Discharge Diagnosis (1) Closed right hip fracture Acute S72.001A - FRACTURE OF UNSP PART OF NECK OF RIGHT FEMUR, INIT Present on Admission: Yes initial encounter S72.001A - Fracture of unspecified part of neck of right femur, initial encounter for closed fracture Discharge Disposition: Snf Facility Discharge Condition: Improved Cognitive Discharge Status: Unimpaired Fuctional Discharge Status: Walker Assistance, Recent lower extremety joint replacement, Post-op Weakness Physician Follow up/Referrals: Sagar Garcia MD [Primary Care Provider] - One Week Shabbir Romeo MD [Staff Physician] - Two Weeks New Prescriptions: Albuterol/Ipratropium Neb [Duoneb] 3 ml NEB RTQ6 #120 nebu Aspirin (Enteric Coated) [Halfprin] 81 mg PO DAILYWM #30 tablet Cefdinir [Omnicef] 300 mg PO BID #10 cap Docusate-Senna Concentrate [Senokot S or Christine Colace] 1 each PO QHS #30 tab Enoxaparin Sodium [Lovenox] 40 mg SQ DAILY #12 each Levofloxacin [Levaquin] 750 mg PO DAILY #5 tab Oxycodone Immediate Release [Oxycodone Immediate Release (OxyIR)] 5 mg PO Q4H PRN #40 tab PRN Reason: Pain Prednisone [Sterapred DS 10 mg/12 day pack] 48 tab PO DIR #1 pack Probiotic Blend [Vicky Q] 1 each PO BID #30 tab Diet at Discharge: As Tolerated, Diabetic Activity: As Tolerated, No Heavy Lifting, No Driving Call Office For: Worsening Symptoms, Wound is Draining Pus, Fever over 101 F, Fever over 100.5, Wound is Painful, Wound is Red, Weight Gain (see below), Pain Uncontrolled By Meds, Other (See Details) Discontinue use of:: Alcohol, All Illegal Substances, All Types of Tobacco - DC Summary Notes Hospital Course Note:: Discharge summary on patient named BIJAL EVANS admitted to [facility] on 04/26/16 by Link Suarez MD. Date of discharge is [04/29/16]. Afebrile. Hospital course and surgery uneventful. Progressing with PT. WBAT. Continue pain management. Lovenox for 14 days post-op for DVT prophylaxis. Aquacel dressing to be removed on POD#7, then daily dressing changes as needed. Discharge to SNF. To follow-up in office in 2 weeks or earlier as needed. Wound Care Surgical Site: Yes Site Description (if applicable): right hip May Shower Starting:: upon discharge Dressing/Site Care (if applicable): Aquacel dressing to be removed on POD#7, then daily dry dressing changes as needed. Medical Equipment (Order must still be written on paper): Walker Remove Transdermal Scopalamine patch if present: YES Medication Instructions: Take Stool Softener Continue Ice Packs/Ice Machine to Operative Area: Yes Activity as Tolerated: Yes Weight Bearing: Full Current Dressing: Aquacel Dressing Care: Keep Wound Clean & Dry, Shower with Tegaderm Dsg, No Tub Baths, Other Instructions Below (Aquacel dressing to be removed on POD#7, then daily dry dressing changes as needed.) - Physical Exam Vital Signs: Initial Vitals Temperature 98.2 F 04/26/16 18:00 Pulse Rate 88 04/26/16 18:00 Respiratory Rate 18 04/26/16 18:00 Blood Pressure 150/75 04/26/16 18:00 Pulse Oxygen Saturation 93 04/26/16 18:00 Constitutional: No apparent distress, Alert, Well appearing - HEENT Head: Normal - Musculoskeletal Extremities: Pedal Pulse, Other (dressing clean, dry, intact). negative: Calf Tenderness - Neurologic Mood Description: Normal Thought: Coherent Perception: Normal
[2016-04-29] MEDS: GUAIFENESIN 600 MG LA TAB PO SCH (08:17)
[2016-04-29] MEDS: PHENYTOIN SODIUM 100 MG CAP PO SCH (08:17)
[2016-04-29] MEDS: CYANOCOBALAMIN (Vitamin B-12) 500 MCG TABLET PO SCH (08:18)
[2016-04-29] MEDS: CALCIUM CARBONATE + VITAMIN D 500 MG TAB PO SCH ×2 (11:03→17:03)
[2016-04-29 11:55] VITALS: BP 129/76; PULSE 87; TEMP 97.8
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
[2016-04-29] MEDS: ENOXAPARIN 40 MG/0.4 ML PFS SQ SCH (17:03)
== END 2016-04-29 17:23 | DRG 469 ==
LOC: ED 17:50 → MPS3 20:18
PROVIDERS: ADMIT Internal Medicine; ATTEND Internal Medicine
PROC: 039B3ZZ Drainage of Right Radial Artery, Percutaneous Approach (ICD-10-PCS; 2016-04-26)
PROC: 0SRR01A Replacement of Right Hip Joint, Femoral Surface with Metal Synthetic Substitute, Uncemented, Open Approach (ICD-10-PCS; principal; 2016-04-27 14:05)
DX: S72.001A Fracture of unspecified part of neck of right femur, initial encounter for closed fracture (principal); J18.9 Pneumonia, unspecified organism; J96.21 Acute and chronic respiratory failure with hypoxia; J44.0 Chronic obstructive pulmonary disease with (acute) lower respiratory infection; K21.9 Gastro-esophageal reflux disease without esophagitis; M06.9 Rheumatoid arthritis, unspecified; Z87.820 Personal history of traumatic brain injury; W05.0XXA Fall from non-moving wheelchair, initial encounter; Y93.9 Activity, unspecified; Y92.129 Unspecified place in nursing home as the place of occurrence of the external cause; I51.9 Heart disease, unspecified; Z87.01 Personal history of pneumonia (recurrent); F41.9 Anxiety disorder, unspecified; Z79.899 Other long term (current) drug therapy; F17.210 Nicotine dependence, cigarettes, uncomplicated; G40.909 Epilepsy, unspecified, not intractable, without status epilepticus
CPT/HCPCS: 36415; 36600; 71010; 73521; 80048; 80053; 81001; 82306; 82550; 82803; 82962; 83036; 84443; 84484; 85007; 85025; 85027; 85610; 85730; 86850; 86900; 86901; 87086; 87641; 93005; 94640; 96372; 96374; 97162; 97165; 98960; 99284; 99406; G0237; J0690; J0696; J1100; J1170; J1650; J1956; J2001; J2250; J2270; J2405; J2930; J3370; J3490; J7060; J7620